=== PATIENT | male | born 1940 | race Caucasian/White ===

== ENCOUNTER → 2019-10-08 | Outpatient (CLI) | payer OTHER ==
[~2019-10-08] MED LIST: ADVAIR 100-501 EACH INH; ALBUTEROL INH; COLACE100 MG PO; DESOXIMETASONE15 G1; FLOVENT DISKU100 MCG IH; HYDROCODON-ACE1 EAC1 PO; HYDROCODON-ACE1 EAC7 PO; IBUPROFEN 200200 M1 PO; LISINOPRIL10 MG PO; LISINOPRIL20 MG PO; MEDROLDOSEPACK PO; NAPROSYN500 MG PO; NEURONTIN 300300 M1 PO; NORCO 10-325 T1 EACH PO; OMEGA-31000 MG PO; OXYCONTIN10 M1 PO; PRAVACHOL40 MG PO; PROAIR HFA8.5 GM; PROTONIX 20 MG20 M1 PO; PROTONIX40 M1 PO; RESPIMAT INH; ROBAXIN 750 MG750 M1 PO; SLOW FE 160MG160 MG PO; SYMBICORT80 MCG/4.1 INH; VENTOLIN HFA 1818 GM INH; ZOCOR 20 MG TAB20 M1 PO
--- NOTE | 2019-10-11 18:52 | SLE ---
[facility] [place] [address] POLYSOMNOGRAPHY STUDY Name: MARIAJOSE HOWARD Room #: REG [facility]#: [id number] Admission: 10/08/19 Attend Phys: Fuentes Bernard MD Discharge: Date of : 44 Report #: [id number] THIS REPORT FOR: //name// CC: Fuentes Bernard MD DATE OF SERVICE: 10/08/2019 SLEEP STUDY REFERRING PHYSICIAN: Dr. Fuentes Bernard. INDICATIONS: The patient is a 78-year-old who weighs 180 pounds with a BMI of 25.1. The patient's Lily [place] score was 17. The patient underwent split night study performed at [facility]. FINDINGS: During the night study, the patient spent 460 minutes in bed and slept for 366 minutes with a sleep efficiency of 79%. Sleep latency was 3.9 minutes with a REM latency of 73 minutes. Sleep architecture showed increased stage 1 and stage 2 sleep, absent slow wave and reduced REM sleep. During the initial diagnostic portion of the study, the patient slept for 140 minutes. During that time, there were 31 obstructive apneas, 2 mixed apneas, no central apneas and 23 hypopneas. The patient's apnea hypopnea index was 24 per hour with a REM index of 40 per hour and a supine index of 23 per hour. The patient's EKG monitoring revealed an average heart rate of 51 beats per minute. No sustained arrhythmias observed. PLMS were seen at an index of 30 per hour and 5 per hour caused EEG arousals. The patient's nocturnal oximetry study revealed a mean oxygen saturation of 94% with a lowest of 82%. Three minutes were spent in oxygen saturation of less than 90%. The patient met the criteria for CPAP initiation. It was started at 7 cm water and titrated up to 14 cm water. At the final pressure, the patient slept for 61 minutes including 9 minutes of lateral REM sleep. The patient's AHI was reduced to 0 per hour and oxygen saturations remained above 94%. IMPRESSION: 1. Moderate sleep apnea-hypopnea syndrome with worsening during REM sleep. Total AHI 24 per hour with a REM AHI of 40 per hour. 2. Nocturnal hypoxia which is mild, but resolved with CPAP. 3. Moderate periodic limb movements of sleep. [facility] [address] [place] [address] POLYSOMNOGRAPHY STUDY Name: MARIAJOSE HOWARD Room #: REG [facility]#: [id number] Admission: 10/08/19 Attend Phys: Fuentes Bernard MD Discharge: Date of : 44 Report #: [id number] RECOMMENDATIONS: 1. CPAP at 14 cm water completely eliminated the patient's sleep apnea and should be used on a nightly basis. 2. Follow up in 4-6 weeks to assess compliance with CPAP and to document clinical improvement. 3. Avoid [employer] depressants. 4. Cautioned regarding driving until symptoms of sleep apnea resolve with the use of CPAP. <ELECTRONICALLY SIGNED> By: Yunior U. Madsen, MD 10/11/19 [id number] Yunior Madsen MD /nt
== END ==
LOC: SLEEPLAB 21:09
DX: G47.33 Obstructive sleep apnea (adult) (pediatric) (principal); G47.34 Idiopathic sleep related nonobstructive alveolar hypoventilation